=== PATIENT | male | born 1970 | race Caucasian/White ===

== ENCOUNTER 2016-09-05 16:46 | Emergency (ER) | payer BC ==
[~2016-09-05] VITALS: Ht 167.6 cm; Wt 82.7 kg
[2016-09-05 16:58] VITALS: TEMP 97
[2016-09-05 17:27] LABS: BASO % 0.5 % (0.0-2.0); EOS # 0.1 (0.0-0.7); EOS % 1.6 % (0-4.0); GRAN # 4.5 (1.4-6.5); GRAN % 60.2 % (42.2-75.2); HEMATOCRIT 41.5 % (42.0-52.0); HEMOGLOBIN 14.8 g/dl (13.5-18.0); LYMPH # 2.2 (1.2-3.4); LYMPH % 29.3 % (20.0-51.0); MEAN CELL VOLUME 92 fl (80.0-100.0); MEAN CORPUSCULAR HEMOGLOBIN 33 pg (27.0-31.0); MEAN CORPUSCULAR HGB CONC 36 g/dl (33.0-37.0); MEAN PLATELET VOLUME 10.1 fl (7.4-10.4); MONO # 0.6 (0.1-0.6); MONO % 7.7 % (1.7-9.3); PLATELET COUNT 235 K/mm3 (130-400); RED BLOOD COUNT 4.49 M/mm3 (4.20-5.60); REDCELL DISTRIBUTION WIDTH-CV 12.7 % (11.5-14.5); WHITE BLOOD COUNT 7.4 K/mm3 (4.8-10.8)
[2016-09-05 17:37] LABS: ANION GAP 13 mmol/L (7-16); BLOOD UREA NITROGEN 17 mg/dL (9-20); CALCIUM 9.5 mg/dL (8.4-10.2); CARBON DIOXIDE 23 mmol/L (22-30); CHLORIDE 102 mmol/L (98-107); CREATININE, serum 0.78 mg/dL (0.66-1.25); GLUCOSE 78 mg/dL (74-106); POTASSIUM 4.4 mmol/L (3.4-5.0); SODIUM 138 mmol/L (137-145)
[2016-09-05 17:49] LABS: TROPONIN-I < 0.012 ng/mL (0.000-0.034)
[2016-09-05 18:01] VITALS: BP 135/79; PULSE 66
== END 2016-09-05 18:03 | disposition home or self-care (01) ==
LOC: COL.ER 16:46
PROVIDERS: Emergency Medicine
DX: R07.9 Chest pain, unspecified (principal); F17.200 Nicotine dependence, unspecified, uncomplicated; Z82.49 Family history of ischemic heart disease and other diseases of the circulatory system

== ENCOUNTER 2016-11-01 07:56 | Emergency (ER) | payer BC ==
[~2016-11-01] VITALS: Ht 167.6 cm; Wt 84.1 kg
[2016-11-01 07:57] VITALS: TEMP 98.2
[2016-11-01] MEDS ORDERED: ALLEGRA 180MG180 MG PO (08:02)
[2016-11-01] MEDS ORDERED: NASACORT OTC NS (08:03)
[2016-11-01] MEDS ORDERED: ULTRAM 50MG TAB50 MG PO (09:04)
[2016-11-01 09:28] VITALS: BP 119/88; PULSE 74
[2016-11-01] MEDS ORDERED: FLEXERIL 1010 MG/TAB PO (09:40)
== END 2016-11-01 09:29 | disposition home or self-care (01) ==
LOC: COL.ER 07:56
DX: R09.1 Pleurisy (principal); F17.210 Nicotine dependence, cigarettes, uncomplicated

== ENCOUNTER → 2016-11-01 | Outpatient (REF) ==
[~2016-11-01] MED LIST: ALLEGRA 180MG180 MG PO; FLEXERIL 1010 MG/TAB PO; NASACORT OTC NS; ULTRAM 50MG TAB50 MG PO
== END ==
LOC: WSOH 13:19
DX: Z00.00 Encounter for general adult medical examination without abnormal findings (principal)

== ENCOUNTER → 2016-11-04 | Outpatient (CLI) | payer BC | LOC: COL.RAD 16:21 | DX: R06.02 Shortness of breath (principal); R07.81 Pleurodynia; R01.1 Cardiac murmur, unspecified | CPT/HCPCS: Q9967 ==

== ENCOUNTER 2017-08-07 23:31 | Emergency (ER) | payer BC ==
[~2017-08-07] VITALS: Ht 167.6 cm; Wt 79.5 kg
[2017-08-07 23:35] VITALS: TEMP 97.6
[2017-08-08] MEDS ORDERED: AMOXICILLIN 8751 TAB PO (00:13)
[2017-08-08 00:24] VITALS: BP 139/80; PULSE 70
== END 2017-08-08 00:36 | disposition home or self-care (01) ==
LOC: COL.ER 23:31
DX: J32.9 Chronic sinusitis, unspecified (principal)
CPT/HCPCS: J1885